=== PATIENT | male | born 1950 | race Caucasian/White ===

== ENCOUNTER 2016-12-17 05:45 | Day surgery (SDC) | payer MEDICARE ==
[2016-12-16 16:37] LABS: BASOPHILS 0.5 % (0.0-2.0); EOSINOPHILS 4.2 % (0-7); HEMATOCRIT 37.9 % (42.0-54.0); HEMOGLOBIN 12.1 g/dL (13.5-17.5); IMMATURE GRANULOCYTES 0.4 % (0-5); MCH 30.2 pg (26.0-34.0); MCHC 31.9 g/dL (31.0-37.0); MCV 94.5 fL (80.0-100.0); MEAN PLATELET VOLUME 10.9 fL (7.4-10.4); MONOCYTES 11.6 % (2-11); NEUTROPHILS 66.3 % (40-80); PLATELET COUNT 109 10x3/uL (130-400); RBC 4.01 10x6/uL (4.20-6.10); RDW 16.7 % (11.5-14.5); WBC 7.6 10x3/uL (4.8-10.8)
[2016-12-16 17:08] LABS: INR 1.08 (0.85-1.17); PROTIME 13.9 SECONDS (11.6-15.0)
[2016-12-16 17:09] LABS: APTT 32.8 SECONDS (22.8-39.4)
[2016-12-16 17:26] LABS: ANION GAP 13.7 mmol/L (8-16); CALCIUM 8.5 mg/dL (8.5-10.1); CARBON DIOXIDE 27.5 mmol/L (21.0-32.0); CREATININE - SERUM 2.5 mg/dL (0.6-1.3); POTASSIUM - SERUM 3.2 mmol/L (3.5-5.1)
[~2016-12-17] VITALS: Ht 175.3 cm; Wt 83.9 kg
[~2016-12-17 05:45] MED LIST: ASPIRIN EC81 M1 PO; ATIVAN1 MG PO; COREG 3.1253.125 MG PO; COUMADIN2.5 MG PO; COUMADIN5 MG PO; FLOMAX0.4 MG PO; FUROSEMIDE40 MG PO; HYDROCODONE-APA1 TAB PO; LYRICA150 MG PO; MULTI-DAY VITAM1 TAB PO; PHOSLO667 MG PO; PROBIOTIC1 EAC1 PO; PROTONIX40 MG PO; SYNTHROID150 MCG PO; VITAMIN B-122500 MCG PO; ZOCOR40 MG PO; ZYLOPRIM300 MG PO
[2016-12-17 06:41] VITALS: Ht 175.3 cm; Wt 83.9 kg
--- NOTE | 2016-12-21 14:04 | OP ---
PATIENT NAME: LOUIE CALZADA MEDICAL RECORD: [id number] :48 LOCATION:[facility] ADMISSION DATE: SURGEON: MARILIN CORNELL MD DATE OF OPERATION: 12/17/2016 REFERRED BY: Ag Garner MD. PREOPERATIVE DIAGNOSIS: End-stage renal disease on chronic hemodialysis in 18.6 and dependence upon hemodialysis Z99.2 and other mechanical complication of a surgically created arterial venous fistula. POSTOPERATIVE DIAGNOSIS: End-stage renal disease on chronic hemodialysis in 18.6 and dependence upon hemodialysis Z99.2 and other mechanical complication of a surgically created arterial venous fistula. OPERATION PERFORMED: 1. Left arm AV fistulogram with ultrasound-guided access and balloon angioplasty of strictured segment of the cephalic vein portion of the dialysis circuit. Also, a separate procedure is performance of a left upper extremity venogram. The access of the cephalic vein at the base of left second metacarpophalangeal joint. SURGEON: Marilin Cornell MD. ANESTHESIA: General with LMA per BRAIDER TENDER. PREOPERATIVE NOTE: Mr. Calzada is a very nice 66-year-old diabetic patient from [place] who has end-stage renal disease and has been on dialysis now since early October with a right internal jugular vein tunneled central dialysis catheter. He had a left brachial artery to basilic primary left brachial artery cephalic vein AV fistula created back in October, I believe by Dr. Elmore in [place] and that fistula has remained patent, though has not matured adequately. He did early on developed a lump or mass in the incision on the medial aspect of the antecubital space. This mass is about 3 cm in diameter is nonpulsatile and nontender, somewhat soft. On ultrasound of my office, I demonstrated it to be a hematoma, seroma and not a pseudoaneurysm. My recommendation was that this did not require intervention. However, the patient's failure to mature this fistula is a major problem and I have recommended a fistulogram with intervention. He is brought to the hospital for the latter this morning. Under anesthesia in supine position, the patient was prepped and draped in sterile manner and the fistula was examined with ultrasound and again I noted the area of hematoma, seroma, which is stable and nonpulsatile and had no color flow demonstrable within the hypoechoic 2-1/2 cm central area. The fistula was patent, but there was an apparent area of stenosis, several centimeters in length near the arterial anastomosis consistent with a "swing segment" type of stricturing. The fistula was accessed percutaneously with ultrasound guidance near the arterial anastomosis and below the area of stricture. The fistula was visualized and with Contrast injections followed all the way to the right atrium. The patient has a right internal jugular dialysis catheter and there was no evidence of any significant stenosis or hematoma or any other narrowing of the innominate or superior vena cava. A Glidewire was passed up and a 6 mm balloon used to dilate the strictured segment and repeated contrast injection demonstrated an improvement with a smooth contour of the vein, but the diameters less than that of the more proximal cephalic vein and the area was dilated a OPERATIVE REPORT [id number] LOUIE CALZADA second time with an 8 mm diameter balloon at low pressure, which on contrast injection subsequently demonstrated a very significant improvement. I did note that there was filling of the cephalic vein confluence really at the mid arm or mid humeral level with the vein coming up from the forearm and there were other draining tributary veins which could in future, possibly require coiling or interruption, but I do not think that flow diversion about tributaries was the main problem for this patient. I did advance the balloon catheter into the innominate vein over the guidewire and then injected contrast through the balloon catheter to perform the superior vena cavogram with better detail and resolution and again there were no abnormalities noted in that venous segment. I removed the balloon catheter and guidewire and left the 6-Paraguayan introducer in place and subsequently noted that the cephalic vein at the wrist and over the dorsum of the thumb and hand at the base of the index finger was large and appealing for creation of a fistula if that should be necessary. I accessed that vein with micropuncture technique near the MCP joint ____ index finger and injected contrast performing a venogram and following contrast proximally to the central veins. Once again, no evidence of central venous stenosis was seen. The cephalic vein in the forearm was patent all the way and drained via both the cephalic vein in the upper arm and also via the basilic vein, which may be the primary drainage. I did note just on the plain images without intra-arterial contrast that there was extensive calcifications of what I believe is both the radial and ulnar arteries. The 4-Paraguayan catheter was removed from the cephalic vein and hemostasis obtained with a short period of direct pressure. A 4-0 Prolene suture was used as a [id number] at the 6-Paraguayan introducer site for hemostasis when the introducer was removed. Both sites were subsequently dressed with Avitene Ultrafoam, Tegaderm, and Cavilon skin prep and the patient awakened in stable condition and with good fistula function at least a palpable thrill and good continuous pulsatile Doppler flow signal, was taken to the recovery room. We will have the patient resume all of his home medications in usual diabetic renal diet, etc. today. I will have him come back to see me in my office next week to see if his fistula is patent and if it is showing signs of a better maturation. I think that if this area of stricture recurs that it is in a rather poor location to treat by endovascular stenting, although that might be a good first option. If so, I would not exceed the 6 mm diameter PTFE covered stent if possible. In my experience of the cephalic vein in the upper arm has been really poor place for stenting. In the future, if additional access procedure is necessary, he might actually still be a candidate for wrist radiocephalic fistula. That would depend upon the radial artery diameter and flow determinations which can be done with ultrasound. Also, he could be a impossible proximal radial artery fistula candidate. However, this patient has already been dialyzing with a catheter for several months and I feel that we need to get it out as soon as possible. An appealing option in this patient if necessary would be to place a forearm loop PTFE AV graft between the brachial artery and the basilic vein below the antecubital space, thereby preserving options for further up the arm fistulas. Blood loss during the procedure was insignificant and unreplaced and all sponges, instruments, and needles were accounted for. No drain was used and no surgical specimen was submitted for histopathology. TRANSINT:[id number] Voice Confirmation ID: [id number] DOCUMENT ID: [id number] CC: Dr. Iris Elmore OPERATIVE REPORT [id number] LOUIE CALZADA, MARILIN MOLINA at 1404 CC: AG GARNER MD, BUDDY ALMANZAR MD and DR. IRIS ELMORE [id number] DICTATION DATE: 12/17/16 0938 FOOD SERVICE SUPERVISOR: 12/17/16 1743 [facility] 12/17/16 [facility] [address] [place] [address]
== END 2016-12-17 11:20 | disposition home or self-care (01) ==
LOC: D.OPS 05:45 → D.PAN 07:30 → D.OPS 07:30
PROVIDERS: Surgery
DX: T82.9XXA Unspecified complication of cardiac and vascular prosthetic device, implant and graft, initial encounter (principal); I87.1 Compression of vein; N18.6 End stage renal disease; Z99.2 Dependence on renal dialysis

== ENCOUNTER → 2018-03-02 10:33 | Outpatient (CLI) | payer MEDICARE ==
[2016-12-17 06:41] VITALS: BMI 27.3
[~2018-03-02 10:33] MED LIST changes: +NORVASC2.5 MG PO; +PROCRIT/EP10000 UNIT SQ; +ROCALTROL0.25 MCG PO
== END | disposition home or self-care (01) ==
LOC: D.CT 10:33
DX: I73.9 Peripheral vascular disease, unspecified (principal)

== ENCOUNTER 2018-03-21 06:32 | Outpatient (CLI) | payer MEDICARE ==
[~2018-03-21] VITALS: Ht 175.3 cm; Wt 84.1 kg
--- NOTE | ~2018-03-21 | HEMODYNAMI ---
PATIENT:LOUIE BRAN MEDICAL RECORD: [id number] : 48 [id number] ADMISSION DATE: 03/21/18 Generatedon:03/21/201810:56 Patient name: LOUIE BRAN Patient #: [id number] SSN: : 1950 Date of study: 03/21/2018 Page: Of Hemodynamic Procedure Report Patient Data Patient Demographics Procedure consent was obtained First Name: LOUIE Gender: Male Last Name: YINA : 1950 [facility] Initial: R Age: 67 year(s) Patient #: [id number] Race: Unknown Additional ID: [id number] Contact details [address]: [address] [place] [address] State: [place] City: [place] Zip code: [address] Past Medical History Allergies Allergen Reaction Date Comments Reported Codeine 03/21/2018 Admission Admission Data Admission Date: 03/21/2018 Admission Time: 6:32 Height (in.): 69 BSA: 2 (m2) Height (cm.): 175.26 BMI: 27.32 (kg/m2) Weight (lbs.): 185 Weight (kg.): 83.91 Procedure Procedure Types Cath Procedure Peripheral Cath Diagnostic Procedure Cath Peripheral Abd/Extremity Extremities Bilat Lower Extremity Procedure Description Procedure Date Procedure Date: 03/21/2018 Procedure Start Time: 9:35 Procedure Staff Name Function Jasen Burrows MD Performing Physician Juana Nieto RT Second Vp Hr Assessment Juana Nieto RT Monitor Kaylee Worley RN Nurse Johny Lee RT Scrub Procedure Data Cath Procedure Fluoroscopy Diagnostic fluoroscopy Total fluoroscopy Time: time: 21.1 min 21.1 min Diagnostic fluoroscopy Total fluoroscopy dose: 487 dose: 487 mGy mGy Contrast Material Contrast Material Type Amount (ml) Isovue 300 140 Entry Location Entry Primary Successful Side Size Upsize Upsize Entry Closure Succes sful Closure Location (Fr) 1 (Fr) 2 (Fr) Remarks Device Remarks Femoral Left Exoseal artery Procedure Medications Medication Administration Route Dosage Lidocaine 1% added to field 20 Heparin Flush Bag added to field 3 bags (1000units/500ml NS) Fentanyl I.V. 50 mcg Versed I.V. 1 mg Fentanyl I.V. 50 mcg Versed I.V. 1 mg Heparin Bolus I.V. 5000 units Versed I.V. 1 mg Fentanyl I.V. 50 mcg Fentanyl I.V. 50 mcg Versed I.V. 1 mg Hemodynamics Rest BSA: 2 (m2) O2 Consumption: Estimated: 222.12 (ml/min) O2 Consumption indexed: E stimated:111.06 (ml/min/m) Heart Rate: 57 (bpm) Snapshots Pre Cath Intra NCS Post Cath Vital Signs Time Heart Resp SPO2 etCO2 NIBP (mmHg) Rhythm Pain Status Sedation Rate (ipm) (%) (mmHg) Level (bpm) 9:23:27 59 11 93 30.1 146/74(129) NSR 4 (11) , 9(A) Distressing 9:27:35 55 10 93 26.3 137/76(120) NSR 5 (11) , Very 9(A) distressing 9:31:47 56 9 93 27 138/76(124) NSR 5 (11) , Very 9(A) distressing 9:36:05 56 11 97 28.6 138/70(122) NSR 4 (11) , 9(A) Distressing 9:40:21 56 9 95 30.1 137/74(118) NSR 2 (11) , 8(A) Uncomfortable 9:44:29 54 14 95 27.1 123/68(107) NSR 2 (11) , 8(A) Uncomfortable 9:48:42 55 10 98 32.3 127/60(104) NSR 2 (11) , 8(A) Uncomfortable 9:52:56 56 9 97 41.4 120/64(89) NSR 0 (11) , No 8(A) pain 9:57:07 56 10 97 32.3 130/69(113) NSR 0 (11) , No 8(A) pain 10:01:22 55 9 97 33.9 122/66(110) NSR 0 (11) , No 8(A) pain 10:05:36 54 7 95 38.4 110/59(99) NSR 0 (11) , No 8(A) pain 10:09:46 60 7 95 42.9 100/60(94) NSR 0 (11) , No 8(A) pain 10:13:50 54 7 96 39.9 103/64(88) NSR 0 (11) , No 8(A) pain 10:17:56 59 7 96 40.6 111/59(89) NSR 0 (11) , No 8(A) pain 10:22:06 53 8 96 35.4 106/57(88) NSR 0 (11) , No 8(A) pain 10:26:14 55 8 97 36.9 113/58(95) NSR 0 (11) , No 8(A) pain 10:30:24 55 8 97 37.6 116/64(100) NSR 0 (11) , No 8(A) pain 10:34:35 52 9 96 36.9 113/60(99) NSR 0 (11) , No 8(A) pain 10:38:49 49 9 96 30.1 119/52(102) NSR 0 (11) , No 8(A) pain 10:43:01 52 8 95 34.6 109/62(95) NSR 0 (11) , No 8(A) pain 10:47:11 53 7 94 34.6 101/57(88) NSR 0 (11) , No 8(A) pain 10:51:17 59 8 95 36.1 101/60(88) NSR 0 (11) , No 8(A) pain 10:55:25 54 7 95 37.6 98/51(91) NSR 0 (11) , No 8(A) pain Medications Time Medication Route Dose Verified Delivered Reason Notes Effec tiveness by by 9:28:03 Lidocaine 1% added 20ml M J Long M J Long used for to vial MD MOLINA procedure field 9:28:28 Heparin Flush added 3 M J Long M J Long used for Bag to bags MD MOLINA procedure (1000units/500ml field NS) 9:37:26 Fentanyl I.V. 50 M J Long Kaylee for mcg MD Meir COLLINS sedation 9:37:38 Versed I.V. 1 mg M J Long Kaylee for MD Meir COLLINS sedation 9:55:15 Fentanyl I.V. 50 M J Long Kaylee for mcg MD Meir RN sedation 9:55:22 Versed I.V. 1 mg M J Long Kaylee for MD Worley RN sedation 10:06:40 Heparin Bolus I.V. 5000 M J Long Kaylee units MD Worley RN 10:39:26 Versed I.V. 1 mg M J Long Kaylee for MD Worley RN sedation 10:39:35 Fentanyl I.V. 50 M J Long Kaylee for mcg MD Worley RN sedation 10:45:11 Fentanyl I.V. 50 M J Long Kaylee for mcg MD Worley RN sedation 10:45:19 Versed I.V. 1 mg M J Long Kaylee for MD Worley RN sedation Procedure Log Time Note 8:57:46 Patient Weight : 185 lbs 8:57:52 Patient Height : 69 inches 8:58:33 Use device set IR Diagnostic 8:59:50 DOC .035 wire (F06699) opened to sterile field. 8:59:51 BENTSON 260 wire (Z18650) opened to sterile field. 8:59:52 Micropuncture VSI 4FR kit opened to sterile field. 8:59:54 SHEATH 5FR [place] (IPF494) opened to sterile field. 8:59:55 Tegaderm 4 x 4 (1626W) opened to sterile field. 8:59:56 Sterile Angiographic Pack opened to sterile field. 8:59:57 Bag Decanter (2002S) opened to sterile field. 8:59:58 ACIST Manifold (53885) opened to sterile field. 8:59:59 ACIST Hand Control (04938) opened to sterile field. 9:00:00 ACIST Syringe (95823) opened to sterile field. 9:00:49 CHOICE PT Extra Support J 300cm guide wire ([id number]) opened to steril e field. 9:01:01 SHEATH 6FR Destination (RSR01) opened to sterile field. 9:15:46 TUBING Contrast Injection High Pressure (VBO724V) opened to sterile field. 9:15:50 - 9:15:56 Time tracking: Regular hours (M-F 7:00 - 5:00) 9:16:15 Plan of Care:Hemodynamics will remain stable., Cardiac rhythm will remain stable., Comfort level will be maintained., Respiratory function will remain adequate., Patient/ family verbilizes understanding of procedure., Procedure tolerated without complication., Recovers from procedure without complications.. 9:16:22 Patient received from Outpatients to IR Alert and oriented. Tansferred to table in Supine position. 9:17:20 Signed procedure consent form obtained from patient. 9:17:30 H&P Date Dictated: 03/21/2018 Within 30 days and on chart.. 9:22:14 ECG and BP/O2 sat monitors applied to patient. 9:22:15 Vital chart was started 9::17 Baseline sample Acquired. 9:22:19 Full Disclosure recording started 9:22:20 - 9:22:22 Pre-procedure instructions explained to patient. 9:22:23 Pre-op teaching completed and patient verbalized understanding. 9:22:28 Family in waiting room. 9:22:31 Patient NPO since Midnight. 9:22:37 Patient allergic to Codeine 9:22:44 Is patient on blood thinner?No 9:22:48 Patient diabetic? Yes. 9:22:50 If diabetic: On Metformin? No 9:22:53 - 9:22:55 ----Pre-sedation anethsthesia assessment.---- 9:23:00 Previous problem with sedation/anesthesia? No ? 9:23:03 Snore? Yes 9:23:05 Sleep apnea? No 9:23:12 Deviated septum? No 9:23:17 Opens mouth fully? Yes 9:23:21 Sticks out tongue? Yes 9:23:32 Airway obstruction? No but has a-fib 9:23:37 Dentures? No ? 9:23:39 - 9::43 Pre procedure: right dorsailis pedis pulse Doppler 9:23:48 Pre procedure: left dorsailis pedis pulse Doppler 9::53 Pre procedure: right posterior tibial pulse Doppler 9:24:01 Pre procedure: left posterior tibial pulse Doppler 9:24:11 IV patent on arrival in right forearm with D5/.45%NaCl at KVO. 9:24:20 Left groin area was prepped with chlora-prep and draped in sterile fashion 9:24:34 Right groin area was prepped with chlora-prep and draped in sterile fashion 9:24:36 - 9:28:03 Lidocaine 1% 20ml vial added to field was administered by Jasen Burrows MD; used for procedure; ::28 Heparin Flush Bag (1000units/500ml NS) 3 bags added to field was administered by Jasen Burrows MD; used for procedure; 9:30:07 back pain from laying flat. 9:32:08 Physician arrived 9:35:13 --------ALL STOP TIME OUT------ :35:13 Final Timeout: patient, procedure, and site verified with staff and physician. All members of the team are in agreement. 9:35:23 Procedure started. 9:35:30 Local anesthetic to left femerol artery with Lidocaine 1% by Jasen Burrows MD.INITIAL ACCESS ONLY 9:36:10 Arterial access obtained using ultrasound guidance. 9:37:26 Fentanyl 50 mcg I.V. was administered by Kaylee Worley RN; for sedation ; 9:37:38 Versed 1 mg I.V. was administered by Kaylee Worley RN; for sedation; 9:43:38 Angiodynamics Omniflush 5Fr 65cm ([id number]) opened to sterile field. 9:55:15 Fentanyl 50 mcg I.V. was administered by Kaylee Worley RN; for sedation ; 9:55:22 Versed 1 mg I.V. was administered by Kaylee Worley RN; for sedation; 9:55:24 CXI SUPPORT .035 135 CM STR catheter (H15636) opened to sterile field. 9:56:25 TURB[place]AWK LX-C Atherectomy catheter (THSLXC) opened to sterile field. 9:57:25 SPIDER EMBOLIC PROTECTION DEVICE 4MM ([id number]) opened to sterile field. 10:06:40 Heparin Bolus 5000 units I.V. was administered by Kaylee Worley RN; ; 10:26:54 INFLATOR BasixTOUCH (XR4725) opened to sterile field. 10:35:50 AMPLATZ Short Taper 260cm wire ([id number]) opened to sterile field. 10:39:26 Versed 1 mg I.V. was administered by Kaylee Worley RN; for sedation; 10:39:35 Fentanyl 50 mcg I.V. was administered by Kaylee Worley RN; for sedation ; 10:42:22 Inflate balloon Inflation number: 1 A IN.PACT Admiral 5 x 80 x 130 DCB Balloon ([id number]) was prepped and advanced across the Undefined1, then inflated to 0 MAGDA for 0:00 (min:sec). 10:45:11 Fentanyl 50 mcg I.V. was administered by Kaylee Worley RN; for sedation ; 10:45:19 Versed 1 mg I.V. was administered by Kaylee Worley RN; for sedation; 10:46:04 Timer 1 started at 10:42 AM, stopped at 10:46 AM, duration 00:03:51 sec . 10:46:59 SHEATH 6FR [place] (ZXC916) opened to sterile field. 10:47:40 EXOSEAL 6Fr (EX600) opened to sterile field. 10:48:29 A sheath was inserted into the Left Femoral artery 10:48:29 Sheath removed intact; hemostasis achieved with Exoseal to the Left Femoral artery. 10:49:16 Procedure ended.(Physican Out) 10:49:41 Fluoroscopy time 21.10 minutes. 10:49:45 Fluoroscopy dose: 487 mGy 10:49:45 Flurop Dose total: 487 10:49:52 Contrast amount:Isovue 300 140ml. 10:55:15 Procedure and supply charges have been captured, reviewed, submitted an d are correct. 10:55:34 Report given to Outpatients. 10:56:31 Vital chart was stopped Intervention Summary Intervention Notes Time ActionType Lesion and Equipment Used Action# Pressure Duration Attributes 10:42:22 Inflate Undefined1 IN.PACT 1 0 00:00 balloon Admiral 5 x 80 x 130 DCB Balloon ([id number]) Device Usage Item Name Manufacture Quantity Catalog Number Hospital Part Current Minimal Lot# / Charge Number Stock Stock Serial# Code DOC .035 wire [employer] 1 [id number] [id number] 5 ([id number]) BENTSON 260 [employer] 1 E11035 103510 232739 356009 5 wire (M93263) Micropuncture VSI VASCULAR 1 7266V 210706 937560 5 VSI 4FR kit SOLUTIONS SHEATH 5FR Terumo 1 LCB857 706381 528658 930896 40 [place] (KMD032) Tegaderm 4 x 4 3M 1 1626W 595738 146304 058781 5 (1626W) Sterile Cardinal 1 [id number] 686839 176080 5 Angiographic Health Pack Bag Decanter Microtek 1 2001S 483366 79471 964440 5 (2001S) Medical Inc. ACIST Manifold Acist Medical 1 68744 653499 173364 989305 5 (86753) Systems Inc ACIST Hand Acist Medical 1 35686 390898 674915 507342 5 Control Systems Inc (44307) ACIST Syringe Acist Medical 1 44113 149827 586263 971410 20 (89892) Systems Inc CHOICE PT [place] 1 [id number] 941207 364237 850995 5 Extra Support Scientific J 300cm guide wire ([id number]) SHEATH 6FR Terumo 1 RSR01 739652 99437 680897 5 Destination (RSR01) TUBING [facility] 1 [id number] 626106 715199 088682 5 Contrast Injection High Pressure (ESY309M) Angiodynamics Angiodynamics 1 [id number] 457767 345205 336406 5 Omniflush 5Fr 65cm ([id number]) TURBOHAWK LX-C Medtronic 1 THS-LX-C 277688 397130 5 Atherectomy catheter (THSLXC) SPIDER EMBOLIC Medtronic 1 [id number] 331102 013448 5 PROTECTION DEVICE 5MM ([id number]) CXI SUPPORT [employer] 1 J64756 172102 851569 302517 5 [id number] .035 135 CM STR catheter (X86856) INFLATOR [facility] 1 TB8321 560072 110662 183879 5 BasixTOUCH (QE2313) AMPLATZ Short [place] 1 [id number] 878700 439015 696293 5 Taper 260cm Scientific wire ([id number]) IN.PACT Medtronic 1 [id number] 027627 141317 116959 5 [id number] Admiral 5 x 80 x 130 DCB Balloon ([id number]) EXOSEAL 6Fr Cardinal 1 EX600 479486 557728 171251 10 (EX600) Health SHEATH 6FR Terumo 1 AOP273 605724 056563 159340 40 [place] (RLY049) Signature Audit [place] Stage Time Signature Unsigned Intra-Procedure 03/21/2018 Juana Nieto 10:56:27 AM RT(R) Signatures Monitor : Juana Nieto RT Signature : Date : Time : [facility] [address] [place] [address]
[~2018-03-21 06:32] MED LIST changes: -NORVASC2.5 MG PO; -PROCRIT/EP10000 UNIT SQ; -ROCALTROL0.25 MCG PO
[2018-03-21 06:55] LABS: BASOPHILS 1.3 % (0-2); EOSINOPHILS 8.8 % (0-7); HEMATOCRIT 33.5 % (42.0-54.0); HEMOGLOBIN 10.7 g/dL (13.5-17.5); IMMATURE GRANULOCYTES 0.3 % (0-5); LYMPHOCYTES 24.9 % (15-50); MCHC 31.9 g/dL (31.0-37.0); MCV 97.1 fL (80.0-100.0); MEAN PLATELET VOLUME 11.4 fL (7.4-10.4); MONOCYTES 8.4 % (2-11); NEUTROPHILS 56.3 % (40-80); RBC 3.45 10x6/uL (4.20-6.10)
[2018-03-21 06:56] LABS: PLATELET COUNT 61 10x3/uL (130-400)
[2018-03-21 07:01] LABS: APTT 33.3 SECONDS (22.8-39.4); INR 1.43 (0.85-1.17)
[2018-03-21 07:12] LABS: PLATELET ESTIMATE DECREASED
[2018-03-21 07:31] LABS: ANION GAP 14.2 mmol/L (8-16); CALCIUM 8.6 mg/dL (8.5-10.1); CARBON DIOXIDE 29.6 mmol/L (21.0-32.0); CREATININE - SERUM 4.5 mg/dL (0.6-1.3); POTASSIUM - SERUM 3.8 mmol/L (3.5-5.1)
[2018-03-21] MEDS ORDERED: NORVASC2.5 MG PO (07:51)
[2018-03-21] MEDS ORDERED: PROCRIT/EP10000 UNIT SQ (07:52)
[2018-03-21] MEDS ORDERED: ROCALTROL0.25 MCG PO (07:53)
[2018-03-21 08:09] VITALS: Ht 175.3 cm; Wt 84.1 kg
== END 2018-03-21 17:36 | disposition home or self-care (01) ==
LOC: D.SP 06:32 → D.RAD 09:00 → D.SP 17:36
PROVIDERS: Radiology Vascular & Interventional Radiology
DX: I70.213 Atherosclerosis of native arteries of extremities with intermittent claudication, bilateral legs (principal); N18.6 End stage renal disease; Z01.812 Encounter for preprocedural laboratory examination